=== PATIENT | male | born 1955 | race Caucasian/White ===

== ENCOUNTER → 2018-02-04 | Outpatient (CLI) | payer OTHER ==
[~2018-02-04] MED LIST: ASPI81CH PO; CHOL10002; GLUC500 PO; SIMV10 PO; Vitamin C100 M1 PO
== END | disposition home or self-care (01) ==
LOC: PLD 13:02 → LAB SHORT 13:02
DX: C44.612 Basal cell carcinoma of skin of right upper limb, including shoulder (principal)
CPT/HCPCS: 88305

== ENCOUNTER 2018-04-14 08:59 | Day surgery (SDC) | payer OTHER ==
[~2018-04-14] VITALS: Ht 182.9 cm; Wt 79.8 kg
== END 2018-04-14 22:37 | disposition home or self-care (01) ==
LOC: ORSCMMR 08:59 → ORD 10:00 → ORSCMMR 22:37
PROVIDERS: Internal Medicine Gastroenterology
PROC: 0DBN8ZX Excision of Sigmoid Colon, Via Natural or Artificial Opening Endoscopic, Diagnostic (ICD-10-PCS; principal; 2018-04-14 10:00)
PROC: 0DBM8ZX Excision of Descending Colon, Via Natural or Artificial Opening Endoscopic, Diagnostic (ICD-10-PCS; principal; 2018-04-14 10:00)
DX: Z12.11 Encounter for screening for malignant neoplasm of colon (principal); D12.4 Benign neoplasm of descending colon; D12.5 Benign neoplasm of sigmoid colon; K63.5 Polyp of colon; K64.8 Other hemorrhoids
CPT/HCPCS: 88305; J7120